=== PATIENT | male | born 1950 | race Caucasian/White ===

== ENCOUNTER 2019-01-22 14:12 | Emergency (ER) | payer MEDICARE, MEDICAID ==
[~2019-01-22] VITALS: Ht 182.9 cm; Wt 66.7 kg
[2019-01-22 14:29] VITALS: BP 114/71
[2019-01-22] MEDS ORDERED: CYCL-1 PO (17:26)
== END 2019-01-22 17:39 | disposition home or self-care (01) ==
LOC: ER 14:12
DX: M54.5 Low back pain (principal); G89.29 Other chronic pain; E78.00 Pure hypercholesterolemia, unspecified; J44.9 Chronic obstructive pulmonary disease, unspecified; F20.9 Schizophrenia, unspecified; F17.200 Nicotine dependence, unspecified, uncomplicated; Z98.890 Other specified postprocedural states; Z88.0 Allergy status to penicillin; Z79.899 Other long term (current) drug therapy
CPT/HCPCS: 99283

== ENCOUNTER 2019-02-17 13:49 | Emergency (ER) | payer MEDICARE, MEDICAID ==
[~2019-02-17] VITALS: Ht 185.4 cm; Wt 65.2 kg
[~2019-02-17 13:49] MED LIST: CYCL-1 PO
[2019-02-17 13:57] VITALS: BP 109/67
== END 2019-02-17 17:55 | disposition left against medical advice (07) ==
LOC: ER 13:51
DX: K62.5 Hemorrhage of anus and rectum (principal); Z53.21 Procedure and treatment not carried out due to patient leaving prior to being seen by health care provider